=== PATIENT | male | born 1990 | race Hispanic/Latino ===

== ENCOUNTER 2016-12-19 03:42 | Observation (INO) | payer BC ==
[2016-12-19 03:48] VITALS: BP 157/88; PULSE 88; RESP 18; TEMP 97.3; O2SAT 95
[2016-12-19] MEDS ORDERED: Sodium Chloride 0.9% 1,000 ML IV STA (03:53)
--- NOTE | 2016-12-19 03:55 | ED PDOC ---
HPI: Psych/Substance Abuse Time Seen by Provider: 12/19/16 03:54 Chief Complaint (Nursing): Alcohol Ingestion Chief Complaint (Provider): alcohol ingestion History Per: Patient (26 y/o male here for evaluation of apparent intoxication. Admits etoh. Denies any head injury. Noted repeated episodes of vomiting today.) Past Medical History Reviewed: Historical Data, Nursing Documentation, Vital Signs Vital Signs: Last Vital Signs Temp 97.3 F L 12/19/16 03:46 Pulse 88 12/19/16 03:46 Resp 18 12/19/16 03:46 BP 157/88 H 12/19/16 03:46 Pulse Ox 95 12/19/16 03:46 - Family History Family History: States: No Known Family Hx - Allergies Allergies/Adverse Reactions: Allergies Allergy/AdvReac Type Severity Reaction Status Date / Time Penicillins Allergy RASH Verified 12/19/16 03:48 Review of Systems ROS Statement: Except As Marked, All Systems Reviewed And Found Negative Physical Exam - Reviewed Nursing Documentation Reviewed: Yes Vital Signs Reviewed: Yes - Physical Exam Appears: Positive for: Well, Non-toxic, No Acute Distress Head Exam: Positive for: ATRAUMATIC, NORMAL INSPECTION, NORMOCEPHALIC Skin: Positive for: Normal Color, Warm, DRY Eye Exam: Positive for: EOMI, Normal appearance, PERRL ENT: Positive for: Normal ENT Inspection Neck: Positive for: Normal, Painless ROM Cardiovascular/Chest: Positive for: Regular Rate, Rhythm Respiratory: Positive for: CNT, Normal Breath Sounds Gastrointestinal/Abdominal: Positive for: Normal Exam, Bowel Sounds, Soft Back: Positive for: Normal Inspection Extremity: Positive for: Normal ROM Neurologic/Psych: Positive for: Alert, Oriented - Laboratory Results Result Diagrams: 12/19/16 04:07 12/19/16 04:07 - ECG O2 Sat by Pulse Oximetry: 95 - Progress ED Course And Treament: ( Patient vomiting in ED) Zofran 4 mg iv x 1 dose NS 1 liter wide open ED OBSERVATION Date of observation admission: 12/19/16 Time of observation admission: 03:52 - Observation admission statement Patient is being placed in observation because:: altered mentation intractable vomiting. - Goals of Observation Goals of observation are:: Hydrate patient Medicate and control vomiting Monitor respiratory condition and observe until clinical sobriety - Progress Note Progress Note: 12/19/16 05:23 Zofran 4 mg iv x 1 dose NS 1 liter wide open Patient sleeping in ED. Disposition - Clinical Impression Clinical Impression: Alcoholic gastritis, Alcohol ingestion - Patient ED Disposition Is Patient to be Admitted: Transfer of Care - Disposition Disposition: Transfer of Care Disposition Time: 06:00 Condition: FAIR Patient Signed Over To: Rene Fajardo Handoff Comments: pending clinical sobriety
[2016-12-19 04:11] LABS: BASO # 0.1 K/uL (0.0-0.2); BASO % 0.8 % (0.0-2.0); EOS # 0.2 K/uL (0.0-0.7); EOS % 1.9 % (0.0-4.0); HEMATOCRIT 47.5 % (35.0-51.0); LYMPH # 3.4 K/uL (1.0-4.3); LYMPH % 31.4 % (20.0-40.0); MEAN CELL VOLUME 89.8 fl (80.0-94.0); MEAN CORPUSCULAR HEMOGLOBIN 30.2 pg (27.0-31.0); MEAN CORPUSCULAR HGB CONC 33.7 g/dL (33.0-37.0); MONO # 0.9 K/uL (0.0-0.8); MONO % 7.9 % (0.0-10.0); NEUT # 6.3 K/uL (1.8-7.0); NRBC % 0.1 % (0.0-0.0); RED CELL DISTRIBUTION WIDTH 13.7 % (11.5-14.5); WHITE BLOOD COUNT 10.8 K/uL (4.8-10.8)
[2016-12-19 04:38] LABS: ALCOHOL SERUM 277 mg/dl (0-10); BLOOD UREA NITROGEN 13 mg/dl (9-20); CALCIUM 9.3 mg/dL (8.4-10.2); CARBON DIOXIDE 19 mmol/L (22-30); CHLORIDE 112 mmol/L (98-107); GFR AFRICAN-AMERICAN > 60; GLUCOSE,RANDOM 122 mg/dL (75-110); POTASSIUM 3.7 MMOL/L (3.6-5.0); SODIUM 150 mmol/l (132-148)
--- NOTE | 2016-12-19 06:02 | ED PDOC ---
- Laboratory Results Result Diagrams: 12/19/16 04:07 12/19/16 04:07 - ECG O2 Sat by Pulse Oximetry: 95 Medical Decision Making Medical Decision Makin12/19/16 06:00 Patient signed over to me from NOLAN Pérez pending sobriety and reevaluation. 12/19/16 07:00 Patient signed over by provider to Dr. Ronquillo pending sobriety and reevaluation. Scribe Attestation: Documented by Abhinav Watt acting as a scribe for Rene Fajardo MD. Scribe Attestation: All medical record entries made by the Scribe were at my direction and personally dictated by me. I have reviewed the chart and agree that the record accurately reflects my personal performance of the history, physical exam, medical decision making, and the department course for this patient. I have also personally directed, reviewed, and agree with the discharge instructions and disposition. Disposition - Clinical Impression Clinical Impression: Alcoholic gastritis, Alcohol ingestion, Alcohol abuse - POA Present On Arrival: None - Disposition Disposition: Transfer of Care Disposition Time: 03:45 Condition: FAIR
--- NOTE | 2016-12-19 07:36 | ED PDOC ---
- Laboratory Results Result Diagrams: 12/19/16 04:07 12/19/16 04:07 - ECG O2 Sat by Pulse Oximetry: 95 - Progress Re-evaluation Time: 09:10 Condition: Improved (Awake alert no focal deficits) Disposition - Clinical Impression Clinical Impression: Alcoholic gastritis, Alcohol ingestion - POA Present On Arrival: None - Disposition Disposition: Routine/Home Disposition Time: 09:10 Condition: FAIR
== END 2016-12-19 09:26 | disposition home or self-care (01) ==
LOC: H.ER 03:42 → H.EROBSV 03:54
PROVIDERS: ADMIT Emergency Medicine; ATTEND Emergency Medicine
DX: K29.20 Alcoholic gastritis without bleeding (principal); F10.129 Alcohol abuse with intoxication, unspecified; Y90.8 Blood alcohol level of 240 mg/100 ml or more; Z88.0 Allergy status to penicillin
CPT/HCPCS: 80048; 85025; 96374; 99282; G0378; G0480; J2405; J7040